=== PATIENT | female | born 1940 | race Caucasian/White ===

== ENCOUNTER 2017-08-23 10:59 | Observation (INO) | payer MEDICARE, BC ==
[2017-08-23 11:27] LABS: CHLORIDE,CL 99 mEq/L (98-106); SODIUM,NA 136 mEq/L (136-145)
[2017-08-23] MEDS ORDERED: Acetaminophen 325 MG Tab PO PRN (13:28)
[2017-08-23] MEDS ORDERED: Magnesium Hydroxide 400 MG/5 ML Susp 30 ML Cup PO PRN (13:28)
[2017-08-23] MEDS ORDERED: Ondansetron 4 MG/2 ML SDV IV PRN (13:28)
[2017-08-23] MEDS ORDERED: Temazepam 15 MG Cap PO PRN (13:28)
[2017-08-23] MEDS ORDERED: Calcium Carbonate 500 MG Tab.Chew PO PRN (13:33)
[2017-08-23] MEDS ORDERED: Ibuprofen 200 MG Tab PO PRN (13:34)
[2017-08-23] MEDS ORDERED: Enoxaparin 30 MG/0.3 ML Syringe SUBCUT SCH (14:00)
[2017-08-23] MEDS ORDERED: metroNIDAZOLE/Normal Saline 500 MG in Premix Bag 1 BAG IV SCH (14:00)
[2017-08-23] MEDS: Vancomycin 125 MG/2.5 ML Oral Solution 2.5 ML UD Cup PO SCH ×2 (15:34→19:52)
[2017-08-23] MEDS: Enoxaparin 40 MG/0.4 ML Syringe SUBCUT SCH (15:34)
[2017-08-23] MEDS ORDERED: Potassium Chloride 40 MEQ in Premix Bag 1 BAG IV SCH (17:00)
[2017-08-23] MEDS ORDERED: Dextrose 5%-0.45% NaCl 1,000 ML IV ONE (17:30)
[2017-08-23] MEDS ORDERED: Potassium Chloride 40 MEQ in Premix Bag 1 BAG IV ONE (17:30)
[2017-08-23] MEDS ORDERED: D5 1/2 NS w/ 20 mEq/L KCl 1,000 ML ONE (19:11)
[2017-08-23] MEDS ORDERED: Acetaminophen 500 MG Tab PO SCH (20:00)
[2017-08-23] MEDS ORDERED: diphenhydrAMINE 25 MG Cap PO SCH (20:00)
[2017-08-24] MEDS: metroNIDAZOLE/Normal Saline 500 MG in Premix Bag 1 BAG IV SCH ×2 (00:03→08:39)
[2017-08-24] MEDS ORDERED: D5 1/2 NS w/ 20 mEq/L KCl 1,000 ML IV SCH ×2 (05:45→07:30)
[2017-08-24] MEDS ORDERED: Vitamin B Complex Cap PO SCH (08:00)
[2017-08-24] MEDS ORDERED: COLESTIPOL 1 GM PO SCH (08:00)
[2017-08-24] MEDS ORDERED: Verapamil 80 MG Tab PO SCH (08:00)
[2017-08-24] MEDS: Vancomycin 125 MG/2.5 ML Oral Solution 2.5 ML UD Cup PO SCH (08:39)
[2017-08-24] MEDS ORDERED: Potassium Chloride 40 MEQ in Premix Bag 1 BAG IV SCH (08:45)
[2017-08-24] MEDS ORDERED: Dextrose 5%-0.45% NaCl 1,000 ML IV SCH (08:45)
[2017-08-24] MEDS: Potassium Chloride 10 MEQ Tab.ER PO SCH ×3 (08:47→17:29)
--- NOTE | 2017-08-24 12:14 | PN ---
DATE: 08/24/2017 S: Mariya Gomez came in with hypokalemia secondary to diarrhea which probably is from the chemotherapy that she is getting for metastatic colon cancer. O: GENERAL: Patient is alert and orientated. NECK: Supple. CHEST: Clear. CARDIAC: Regular. ABDOMEN: Soft. ASSESSMENT/PLAN: Stools have stopped. C. diff is negative. I will get stool cultures. She is still hypokalemic. Give her IV and oral potassium today. DESIRE/MIHIR /[id number]
[2017-08-24] MEDS: Enoxaparin 40 MG/0.4 ML Syringe SUBCUT SCH (16:05)
[2017-08-24 16:12] VITALS: BP 138/67
--- NOTE | 2017-08-25 07:59 | DISCH ---
HOSPITAL COURSE: This is an elderly white female came in with diarrhea. She had a history of C diff in the past. I went ahead and we did start her on some IV fluids and IV potassium because potassium was 2.6-2.7, it was 2.7 on admission, went to 2.6 this morning. We then started on IV and oral potassium. She demanded to go home. So, we are going to let her go home and follow with. Diarrhea is better than when she came in. CBC: Hemoglobin 11.4, probably from chemo for her colon cancer. Creatinine is good. Urinalysis looked good. DISPOSITION: The patient is now discharged home. She will have a panel 8 early Tuesday morning. DISCHARGE MEDICATIONS: Home medications plus Micro-K 10 20 mEq t.i.d. and Colestid 1 g b.i.d. for a month. DISCHARGE DIAGNOSIS: 1. HYPOKALEMIA. 2. METASTATIC COLON CANCER. 3. HISTORY OF CLOSTRIDIUM DIFFICILE. DESIRE/MIHIR /[id number]
== END 2017-08-24 18:55 | disposition home or self-care (01) ==
LOC: CC.FCMC 10:59 → CC.MS 10:59 → UNDOADMOB 12:09 → CC.MS 12:09
PROVIDERS: ADMIT General Practice; ATTEND General Practice
DX: E87.6 Hypokalemia (principal); R53.83 Other fatigue; C18.9 Malignant neoplasm of colon, unspecified; C79.9 Secondary malignant neoplasm of unspecified site; E78.5 Hyperlipidemia, unspecified; I10 Essential (primary) hypertension; Z79.899 Other long term (current) drug therapy
CPT/HCPCS: 36415; 80048; 80053; 81001; 83735; 85025; 86140; 87045; 87046; 87493; 87899; 89055; 96361; 96365; 96366; 96367; 96372; 96376; A9270; G0378; J1650; J3480; J7042; 99217; 99220

== ENCOUNTER 2018-12-13 13:19 | Observation (INO) | payer MEDICARE, BC ==
[2018-12-13] MEDS ORDERED: Ondansetron 4 MG/2 ML SDV IV PRN (14:05)
[2018-12-13] MEDS ORDERED: Acetaminophen 325 MG Tab PO PRN (14:05)
[2018-12-13] MEDS: Sodium Chloride 0.9% 1,000 ML IV SCH (14:44)
[2018-12-13] MEDS ORDERED: Potassium Chloride Riders 40 MEQ in Premix Bag 1 BAG IV ONE (14:45)
[2018-12-13] MEDS: Enoxaparin 30 MG/0.3 ML Syringe SUBCUT SCH (15:55)
[2018-12-13] MEDS ORDERED: diphenhydrAMINE 25 MG Cap PO PRN (18:27)
[2018-12-13] MEDS ORDERED: Magnesium Sulfate/D5W 2 GM in Premix Bag 1 BAG IV ONE (19:00)
[2018-12-13] MEDS: **PTOM** Gabapentin 300 MG Cap PO SCH (20:05)
[2018-12-13] MEDS: POTASSIUM CHLORIDE 20 MEQ PO SCH (20:05)
[2018-12-13] MEDS: ADVIL PM PO PRN (20:08)
[2018-12-14] MEDS: Sodium Chloride 0.9% 1,000 ML IV SCH ×3 (00:35→19:43)
[2018-12-14] MEDS: Pantoprazole 40 MG Tab.CR PO SCH (06:48)
[2018-12-14] MEDS ORDERED: Potassium Chloride Riders 40 MEQ in Premix Bag 1 BAG IV ONE (07:44)
[2018-12-14] MEDS ORDERED: Potassium Chloride 10 MEQ Tab.ER PO SCH (08:00)
[2018-12-14] MEDS ORDERED: **PTOM** Furosemide 20 MG Tab PO SCH (08:00)
[2018-12-14] MEDS ORDERED: Non-Formulary Medication 1 Each (Lysine [Lysine] 500 MG) PO SCH (08:00)
[2018-12-14] MEDS: POTASSIUM CHLORIDE 20 MEQ PO SCH ×2 (08:01→19:37)
[2018-12-14] MEDS: Vitamin B Complex Cap PO SCH (08:01)
--- NOTE | 2018-12-14 09:04 | PCM.PN ---
- General Info Date of Service: 12/14/18 Admission Dx/Problem (Free Text): Weakness Dehydration Metastatic colon cancer Functional Status: Reports: Pain Controlled, Tolerating Diet, Ambulating - Review of Systems General: Reports: Weakness HEENT: Reports: Other (sore mouth) Pulmonary: Denies: Shortness of Breath, Cough Cardiovascular: Denies: Chest Pain Gastrointestinal: Reports: Decreased Appetite. Denies: Abdominal Pain, Nausea, Vomiting Genitourinary: Reports: No Symptoms Musculoskeletal: Reports: No Symptoms Skin: Reports: No Symptoms Neurological: Reports: Weakness - Patient Data Vitals - Most Recent: Last Vital Signs Temp 96.9 F 12/14/18 07:35 Pulse 65 12/14/18 07:35 Resp 18 12/14/18 07:35 BP 106/63 12/14/18 07:35 Pulse Ox 95 12/14/18 07:35 Weight - Most Recent: 105 lb 3.2 oz I&O - Last 24 Hours: Intake & Output 12/13/18 12/14/18 12/14/18 22:59 06:59 14:59 Intake Total 250 1285 Output Total 350 0 400 Balance -100 1285 -400 Lab Results Last 24 Hours: Laboratory Results - last 24 hr 12/13/18 12/13/18 12/13/18 Range/Units 14:04 14:04 18:03 WBC 3.7 L (5.0-10.0) 10^3/uL RBC 2.90 L (4.00-5.50) 10^6/uL Hgb 9.3 L (12.0-16.0) g/dL Hct 27.7 L (37.0-47.0) % MCV 95.5 H (82.0-94.0) fL MCH 32.1 H (27.0-32.0) pg MCHC 33.6 (33.0-38.0) g/dL RDW Coeff of Angela 15.5 H (11.0-15.0) % Plt Count 194 (150-400) 10^3/uL Neut % (Auto) 65.4 (35-85) % Lymph % (Auto) 20.4 (10-55) % [place] % (Auto) 10.2 (0-16) % Eos % (Auto) 3.2 (0-5) % Baso % (Auto) 0.8 (0-3) % Neut # (Auto) 2.43 (1.80-7.00) 10^3/uL Lymph # (Auto) 0.76 L (1.00-4.80) 10^3/uL [place] # (Auto) 0.38 (0.00-0.80) 10^3/uL Eos # (Auto) 0.12 (0.00-0.45) 10^3/uL Baso # (Auto) 0.03 10^3/uL Sodium 136 (136-145) mEq/L Potassium 2.7 L* (3.5-5.0) mEq/L Chloride 101 (98-106) mEq/L Carbon Dioxide 26 (21-32) mmol/L BUN 19 H (7-18) mg/dL Creatinine 1.1 H (0.6-1.0) mg/dL Est Cr Clr Drug Dosing 30.73 mL/min Estimated GFR (MDRD) 48 L (>=60) mL/min Glucose 109 H (75-99) mg/dL Calcium 8.0 L (8.4-10.1) mg/dL Magnesium 1.5 L (1.8-2.4) mg/dL Total Bilirubin 0.4 (0.0-1.0) mg/dL AST 32 (15-37) U/L ALT 14 (12-78) U/L Alkaline Phosphatase 60 (46-116) U/L C-Reactive Protein 1.5 H (0.2-0.8) mg/dL Total Protein 5.8 L (6.4-8.2) g/dL Albumin 2.3 L (3.4-5.0) g/dL Urine Color Yellow (YELLOW) Urine Appearance Clear (CLEAR) Urine pH 6.0 (4.5-8.0) Ur Specific [place] 1.010 (1.003-1.020) Urine Protein Negative (NEGATIVE) mg/dL Urine Glucose (UA) Negative (NEGATIVE) mg/dL Urine Ketones Negative (NEGATIVE) mg/dL Urine Occult Blood Negative (NEGATIVE) Urine Nitrite Negative (NEGATIVE) Urine Bilirubin Negative (NEGATIVE) Urine Urobilinogen 0.2 (0.2-1.0) EU/dL Ur Leukocyte Esterase Negative (NEGATIVE) 12/14/18 12/14/18 Range/Units 06:50 06:50 WBC 3.9 L (5.0-10.0) 10^3/uL RBC 2.68 L (4.00-5.50) 10^6/uL Hgb 8.6 L (12.0-16.0) g/dL Hct 25.9 L (37.0-47.0) % MCV 96.3 H (82.0-94.0) fL MCH 32.1 H (27.0-32.0) pg MCHC 33.3 (33.0-38.0) g/dL RDW Coeff of Angela 15.5 H (11.0-15.0) % Plt Count 182 (150-400) 10^3/uL Neut % (Auto) 56.3 (35-85) % Lymph % (Auto) 29.2 (10-55) % [place] % (Auto) 9.6 (0-16) % Eos % (Auto) 4.0 (0-5) % Baso % (Auto) 0.9 (0-3) % Neut # (Auto) 1.81 (1.80-7.00) 10^3/uL Lymph # (Auto) (1.00-4.80) 10^3/uL [place] # (Auto) 0.31 (0.00-0.80) 10^3/uL Eos # (Auto) 0.13 (0.00-0.45) 10^3/uL Baso # (Auto) 0.03 10^3/uL Sodium 137 (136-145) mEq/L Potassium 3.2 L (3.5-5.0) mEq/L Chloride 104 (98-106) mEq/L Carbon Dioxide 25 (21-32) mmol/L BUN 14 (7-18) mg/dL Creatinine 1.0 (0.6-1.0) mg/dL Est Cr Clr Drug Dosing 33.80 mL/min Estimated GFR (MDRD) 53 L (>=60) mL/min Glucose 81 D (75-99) mg/dL Calcium 7.5 L (8.4-10.1) mg/dL Magnesium 2.1 (1.8-2.4) mg/dL Total Bilirubin (0.0-1.0) mg/dL AST (15-37) U/L ALT (12-78) U/L Alkaline Phosphatase (46-116) U/L C-Reactive Protein (0.2-0.8) mg/dL Total Protein (6.4-8.2) g/dL Albumin (3.4-5.0) g/dL Urine Color (YELLOW) Urine Appearance (CLEAR) Urine pH (4.5-8.0) Ur Specific [place] (1.003-1.020) Urine Protein (NEGATIVE) mg/dL Urine Glucose (UA) (NEGATIVE) mg/dL Urine Ketones (NEGATIVE) mg/dL Urine Occult Blood (NEGATIVE) Urine Nitrite (NEGATIVE) Urine Bilirubin (NEGATIVE) Urine Urobilinogen (0.2-1.0) EU/dL Ur Leukocyte Esterase (NEGATIVE) [place]ner Results Last 24 Hours: Microbiology 12/14/18 07:09 C. difficile DNA Amplification - Final Stool / Feces NEGATIVE CDIFF BY DNA Med Orders - Current: Current Medications Acetaminophen (Tylenol) 650 mg PO Q4H PRN PRN Reason: Pain (Mild 1-3)/fever Enoxaparin Sodium (Lovenox) 30 mg SUBCUT Q24H [facility] Last Admin: 12/13/18 15:55 Dose: 30 mg Gabapentin (Neurontin) 100 mg PO WITHLUNCH [facility] Gabapentin (Neurontin) 300 mg PO BEDTIME [facility] Last Admin: 12/13/18 20:05 Dose: 300 mg Sodium Chloride (Normal Saline) 1,000 mls @ 100 mls/hr IV ASDIRECTED [facility] Last Admin: 12/14/18 00:35 Dose: 100 mls/hr Potassium Chloride 40 meq/ (Premix) 100 mls @ 25 mls/hr IV ONETIME ONE Stop: 12/14/18 11:43 Last Admin: 12/14/18 08:40 Dose: 25 mls/hr Ptom Potassium (Chloride 20 Meq Tab) 20 meq PO BID [facility] Last Admin: 12/14/18 08:01 Dose: 20 meq Ptom Advil Pm ( Ibuprofen/Diphenhydramine) 1 each PO BEDTIME PRN PRN Reason: Sleep Last Admin: 12/13/18 20:08 Dose: 1 each Ondansetron HCl (Zofran) 4 mg IV Q6H PRN PRN Reason: Nausea/Vomiting Pantoprazole Sodium (Protonix) 40 mg PO DAILY@0700 [facility] Last Admin: 12/14/18 06:48 Dose: 40 mg Vitamin B Complex (Vitamin B Complex) 1 each PO DAILY [facility] Last Admin: 12/14/18 08:01 Dose: Not Given Discontinued Medications Diphenhydramine HCl (Benadryl) 25 mg PO Q12H PRN PRN Reason: Sleep Furosemide (Lasix) 20 mg PO DAILY [facility] Potassium Chloride 40 meq/ (Premix) 100 mls @ 25 mls/hr IV ONETIME ONE Stop: 12/13/18 18:44 Last Admin: 12/13/18 14:46 Dose: 25 mls/hr Magnesium Sulfate/Dextrose 2 (gm/ Premix) 200 mls @ 200 mls/hr IV ONETIME ONE Stop: 12/13/18 19:59 Last Admin: 12/13/18 18:51 Dose: 200 mls/hr Non-Formulary Medication (Acetaminophen/Diphenhydramine [Tylenol Pm Ex-Strength Caplet]) 1 - 2 tab PO BEDTIME PRN PRN Reason: Insomnia Non-Formulary Medication (Lysine [Lysine]) 500 mg PO DAILY [facility] Potassium Chloride (Klor-Con 10) 20 meq PO DAILY [facility] - Exam General: Alert, Oriented HEENT: Mucous Membr. Moist/[place] Neck: Supple Lungs: Clear to Auscultation, Normal Respiratory Effort Cardiovascular: Regular Rate, Regular Rhythm GI/Abdominal Exam: Normal Bowel Sounds, Soft, Non-Tender Extremities: Normal Inspection, No Pedal Edema Skin: Warm, Dry Neurological: No New Focal Deficit - Problem List & Annotations (1) Weakness SNOMED Code(s): 25774254 Code(s): R53.1 - WEAKNESS Status: Acute Priority: High Current Visit: Yes (2) Colon cancer SNOMED Code(s): 128394985 Code(s): C18.9 - MALIGNANT NEOPLASM OF COLON, UNSPECIFIED Status: Acute Priority: High Current Visit: Yes (3) Hypokalemia SNOMED Code(s): 19736779 Code(s): E87.6 - HYPOKALEMIA Status: Acute Priority: High Current Visit : Yes (4) Palliative care patient SNOMED Code(s): 077007603 Code(s): Z51.5 - ENCOUNTER FOR PALLIATIVE CARE Status: Acute Priority: High Current Visit: Yes - Problem List Review Problem List Initiated/Reviewed/Updated: Yes - Assessment Assessment:: Weakness Hypokalemia Metastatic Colon Cancer Palliative Care patient - Plan Plan:: Patient admits to feeling better this am. Has ongoing weakness, but improved. She denies much pain this am. Minimal appetite but states that is chronic for her. Has mouth soreness making it difficult for her to eat. Was admitted yesterday with low potassium at 2.9, magnesium at 1.5. Was given IV potassium 40 meq yesterday, today potassium is 3.2. Given magnesium sulfate IV as well yesterday, today improved to 2.1. Creatinine stable. Will repeat labs in am, possibly discharge home tomorrow.
[2018-12-14] MEDS ORDERED: **PTOM** Gabapentin 100 MG Cap PO SCH (12:00)
[2018-12-14] MEDS: Enoxaparin 30 MG/0.3 ML Syringe SUBCUT SCH (17:02)
[2018-12-14] MEDS: **PTOM** Gabapentin 300 MG Cap PO SCH (19:37)
[2018-12-14] MEDS: ADVIL PM PO PRN (21:18)
[2018-12-15] MEDS: Pantoprazole 40 MG Tab.CR PO SCH (06:13)
[2018-12-15] MEDS: Sodium Chloride 0.9% 1,000 ML IV SCH (06:13)
[2018-12-15] MEDS ORDERED: LYSINE 1000 MG PO SCH (08:00)
[2018-12-15] MEDS: POTASSIUM CHLORIDE 20 MEQ PO SCH (08:14)
[2018-12-15] MEDS: Vitamin B Complex Cap PO SCH (08:14)
[2018-12-15 08:18] VITALS: BP 115/63
[2018-12-15 08:47] LABS: CHLORIDE,CL 109 mEq/L (98-106); SODIUM,NA 139 mEq/L (136-145)
--- NOTE | 2018-12-15 20:36 | PCM.DCSUM1 ---
Discharge Summary - Hospital Course Free Text/Narrative:: Patient presented to clinic to see Ashley for increased weakness. Not eating well per norm but also not able to consume fluids and worried about dehydration. Has felt lightheaded and dizzy. Did fall x1. Hit her head but no loss of consciousness. Mild diarrhea night prior to admit. Has issues with mouth sores making it difficult to eat. Patient has history of metastatic colon cancer with nodules in lungs and ovary. Has been on chemo regimen every 2 weeks for some time, possibly hoping to switch to oral chemo when sees her oncologist on December 19. Lab work done show potassium low at 2.7. WBC 3.9. Admitted for weakness, hypokalemia. IV fluids with potassium 40 meq bump ordered. Diagnosis: Stroke: No Modified Lassen Scale: No Symptoms at All Modified Lassen Scale Score: 0 - Discharge Data Discharge Date: 12/15/18 Discharge Disposition: Home, Home Health Agency 06 Condition: Fair - Discharge Diagnosis/Problem(s) (1) Weakness SNOMED Code(s): 89936322 ICD Code: R53.1 - WEAKNESS Status: Acute Priority: High (2) Colon cancer SNOMED Code(s): 925466844 ICD Code: C18.9 - MALIGNANT NEOPLASM OF COLON, UNSPECIFIED Status: Acute Priority: High (3) Hypokalemia SNOMED Code(s): 70280982 ICD Code: E87.6 - HYPOKALEMIA Status: Acute Priority: High (4) Palliative care patient SNOMED Code(s): 408681883 ICD Code: Z51.5 - ENCOUNTER FOR PALLIATIVE CARE Status: Acute Priority: High - Patient Summary/Data Complications: none Consults: Consultations 12/13/18 14:05 PT Evaluation and Treatment [CONS] Routine Hospital Course: Patient feeling better today. Is still weak but relates more to her norm. Unsteady at times with ambulation. She reports that her balance and gait has been unsteady for some time. Only ambulates with at home as is hesitant to use a walker. Eating only small amounts. Abdomen is mildly distended, nontender yet at this time. Potassium improved to 3.3 yesterday, 3.8 today. Will discharge home. Increase potassium to 20 meq BID. [facility] for palliative care. Follow up with Dr. Ahumada in one week. - Patient Instructions Diet: Usual Diet as Tolerated Activity: As Tolerated - Discharge Plan *PRESCRIPTION DRUG MONITORING PROGRAM REVIEWED*: No *COPY OF PRESCRIPTION DRUG MONITORING REPORT IN PATIENT MARY: No Prescriptions/Med Rec: Potassium Chloride 20 meq PO BID 30 Days #60 Home Medications: Home Meds Calcium Carbonate/Vitamin D3 [Calcium 500-Vit D3 200 Tablet] 2 tab PO DAILY [History] Ibuprofen [Advil] 200 mg PO DAILY PRN 07/14/15 [History] Verapamil [Calan] 80 mg PO DAILY 07/14/15 [History] Vitamin B Complex [B Complex] 1 each PO DAILY 07/14/15 [History] Cholecalciferol (Vitamin D3) [Vitamin D3] 5,000 unit PO DAILY 04/10/16 [History] Acetaminophen/Diphenhydramine [Tylenol Pm Ex-Strength Caplet] 1 - 2 tab PO BEDTIME PRN 05/08/16 [History] Gabapentin [Neurontin] 300 mg PO BEDTIME 05/04/18 [History] guaiFENesin [Mucinex] 600 mg PO BID PRN 08/30/18 [History] Furosemide 20 mg PO DAILY 10/19/18 [History] Diphenoxylate HCl/Atropine [Diphenoxylate-Atrop 2.5-0.025] 2 tab PO QID PRN [History] Gabapentin [Neurontin] 100 mg PO 1200 12/13/18 [History] Lysine 500 mg PO DAILY 12/13/18 [History] Ondansetron HCl [Zofran] 4 mg PO Q6H PRN 12/13/18 [History] Potassium Chloride 20 meq PO BID 30 Days #60 12/15/18 [Rx] Patient Handouts: Hypokalemia, Potassium Content of Foods Referrals: Ketan Ahumada MD [Primary Care Provider] - (Follow up with Dr. Ahumada in one week) - Discharge Summary/Plan Comment DC Time >30 min.: No - General Info Date of Service: 12/15/18 Admission Dx/Problem (Free Text: Weakness Dehydration Metastatic colon cancer Functional Status: Reports: Pain Controlled, Tolerating Diet, Ambulating - Review of Systems General: Reports: Weakness, Fatigue, Malaise HEENT: Reports: No Symptoms Pulmonary: Denies: Shortness of Breath, Cough Cardiovascular: Denies: Chest Pain, Edema, Lightheadedness Gastrointestinal: Reports: Abdominal Pain. Denies: Nausea, Vomiting Genitourinary: Reports: No Symptoms Musculoskeletal: Reports: No Symptoms Skin: Reports: No Symptoms Neurological: Reports: Weakness - Patient Data Vitals - Most Recent: Last Vital Signs Temp 97.4 F 12/15/18 08:00 Pulse 64 12/15/18 08:00 Resp 16 12/15/18 08:00 BP 115/63 12/15/18 08:00 Pulse Ox 100 12/15/18 08:00 Weight - Most Recent: 105 lb 3.2 oz I&O - Last 24 hours: Intake & Output 12/15/18 12/15/18 12/15/18 06:59 14:59 22:59 Intake Total 1200 Output Total 200 Balance 1000 Lab Results - Last 24 hrs: Laboratory Results - last 24 hr 12/15/18 12/15/18 Range/Units 07:53 08:10 WBC 5.2 (5.0-10.0) 10^3/uL RBC 2.66 L (4.00-5.50) 10^6/uL Hgb 8.5 L (12.0-16.0) g/dL Hct 25.7 L (37.0-47.0) % MCV 96.6 H (82.0-94.0) fL MCH 32.0 (27.0-32.0) pg MCHC 33.1 (33.0-38.0) g/dL RDW Coeff of Angela 15.9 H (11.0-15.0) % Plt Count 186 (150-400) 10^3/uL Neut % (Auto) 63.3 (35-85) % Lymph % (Auto) 22.3 (10-55) % [place] % (Auto) 11.3 (0-16) % Eos % (Auto) 2.5 (0-5) % Baso % (Auto) 0.6 (0-3) % Neut # (Auto) 3.26 (1.80-7.00) 10^3/uL Lymph # (Auto) 1.15 (1.00-4.80) 10^3/uL [place] # (Auto) 0.58 (0.00-0.80) 10^3/uL Eos # (Auto) 0.13 (0.00-0.45) 10^3/uL Baso # (Auto) 0.03 10^3/uL Sodium 139 (136-145) mEq/L Potassium 3.8 (3.5-5.0) mEq/L Chloride 109 H (98-106) mEq/L Carbon Dioxide 25 (21-32) mmol/L BUN 12 (7-18) mg/dL Creatinine 1.0 (0.6-1.0) mg/dL Est Cr Clr Drug Dosing 33.80 mL/min Estimated GFR (MDRD) 53 L (>=60) mL/min Glucose 79 (75-99) mg/dL Calcium 7.6 L (8.4-10.1) mg/dL Magnesium 1.9 (1.8-2.4) mg/dL C-Reactive Protein < 0.2 L (0.2-0.8) mg/dL KATELYN Results - Last 24 hrs: Microbiology 12/14/18 07:09 Stool Aerobic Culture - Preliminary Stool / Feces Med Orders - Current: Current Medications Discontinued Medications Acetaminophen (Tylenol) 650 mg PO Q4H PRN PRN Reason: Pain (Mild 1-3)/fever Last Admin: 12/14/18 19:42 Dose: 650 mg Diphenhydramine HCl (Benadryl) 25 mg PO Q12H PRN PRN Reason: Sleep Enoxaparin Sodium (Lovenox) 30 mg SUBCUT Q24H [facility] Last Admin: 12/14/18 17:02 Dose: 30 mg Furosemide (Lasix) 20 mg PO DAILY [facility] Gabapentin (Neurontin) 100 mg PO WITHLUNCH [facility] Last Admin: 12/14/18 11:52 Dose: 100 mg Gabapentin (Neurontin) 300 mg PO BEDTIME [facility] Last Admin: 12/14/18 19:37 Dose: 300 mg Heparin Sodium (Porcine) (Heparin Lock Flush 100 Units/Ml) Confirm Administered Dose 500 units .ROUTE .STK-MED ONE Stop: 12/15/18 10:14 Last Admin: 12/15/18 10:51 Dose: Not Given Heparin Sodium (Porcine) (Heparin Lock Flush 100 Units/Ml) 300 units FLUSH ASDIRECTED PRN PRN Reason: Other Last Admin: 12/15/18 10:48 Dose: 300 units Sodium Chloride (Normal Saline) 1,000 mls @ 100 mls/hr IV ASDIRECTED [facility] Last Admin: 12/15/18 06:13 Dose: 100 mls/hr Potassium Chloride 40 meq/ (Premix) 100 mls @ 25 mls/hr IV ONETIME ONE Stop: 12/13/18 18:44 Last Admin: 12/13/18 14:46 Dose: 25 mls/hr Magnesium Sulfate/Dextrose 2 (gm/ Premix) 200 mls @ 200 mls/hr IV ONETIME ONE Stop: 12/13/18 19:59 Last Admin: 12/13/18 18:51 Dose: 200 mls/hr Potassium Chloride 40 meq/ (Premix) 100 mls @ 25 mls/hr IV ONETIME ONE Stop: 12/14/18 11:43 Last Admin: 12/14/18 08:40 Dose: 25 mls/hr Non-Formulary Medication (Acetaminophen/Diphenhydramine [Tylenol Pm Ex-Strength Caplet]) 1 - 2 tab PO BEDTIME PRN PRN Reason: Insomnia Non-Formulary Medication (Lysine [Lysine]) 500 mg PO DAILY [facility] Ptom Potassium (Chloride 20 Meq Tab) 20 meq PO BID [facility] Last Admin: 12/15/18 08:14 Dose: 20 meq Ptom Advil Pm ( Ibuprofen/Diphenhydramine) 1 each PO BEDTIME PRN PRN Reason: Sleep Last Admin: 12/14/18 21:18 Dose: 1 each Ptom Lysine 1, (000 Mg Tab) 1,000 mg PO DAILY [facility] Last Admin: 12/15/18 08:14 Dose: 1,000 mg Ondansetron HCl (Zofran) 4 mg IV Q6H PRN PRN Reason: Nausea/Vomiting Pantoprazole Sodium (Protonix) 40 mg PO DAILY@0700 [facility] Last Admin: 12/15/18 06:13 Dose: 40 mg Potassium Chloride (Klor-Con 10) 20 meq PO DAILY [facility] Vitamin B Complex (Vitamin B Complex) 1 each PO DAILY [facility] Last Admin: 12/15/18 08:14 Dose: 1 each - Exam General: Reports: Alert, Oriented HEENT: Reports: Mucous Membr. Moist/[place] Neck: Reports: Supple Lungs: Reports: Clear to Auscultation, Normal Respiratory Effort Cardiovascular: Reports: Regular Rate, Regular Rhythm GI/Abdominal Exam: Normal Bowel Sounds, Soft, Non-Tender Extremities: Normal Inspection, No Pedal Edema Skin: Reports: Warm, Dry Neurological: Reports: No New Focal Deficit
== END 2018-12-15 10:48 | disposition home health service (06) ==
LOC: UNDOADMOB 13:19 → CC.MS 13:19
PROVIDERS: ADMIT Nurse Practitioner Family; ATTEND Family Medicine
DX: E87.6 Hypokalemia (principal); E86.0 Dehydration; E83.42 Hypomagnesemia; I95.9 Hypotension, unspecified; C18.9 Malignant neoplasm of colon, unspecified; C78.00 Secondary malignant neoplasm of unspecified lung; C79.62 Secondary malignant neoplasm of left ovary; C78.6 Secondary malignant neoplasm of retroperitoneum and peritoneum; K52.1 Toxic gastroenteritis and colitis; T45.1X5A Adverse effect of antineoplastic and immunosuppressive drugs, initial encounter; Z51.5 Encounter for palliative care; Z79.899 Other long term (current) drug therapy
CPT/HCPCS: 36415; 70450; 80048; 80053; 81003; 83735; 85025; 86140; 87045; 87046; 87493; 96361; 96365; 96366; 96367; 96372; 97161-GP; 99217; 99220; 99225; A9270-GY; G0378; G0379; J1642; J1650; J3475; J3480; J7030

== ENCOUNTER 2019-01-03 09:13 | Observation (INO) | payer MEDICARE, BC ==
[2019-01-03] MEDS ORDERED: Lactated Ringers 1,000 ML IV SCH (09:15)
[2019-01-03 09:51] LABS: O2 DELIVERY DEVICE NASAL CANNULA
[2019-01-03 09:53] LABS: BICARBONATE,ARTERIAL 14.9 mm/L (22.0-26.0); O2 SATURATION ARTERIAL 99 % (95-98); PCO2 ARTERIAL 20 mm/Hg0 (35-45); PO2 ARTERIAL 104 mm/Hg (80-100)
[2019-01-03] MEDS ORDERED: Ondansetron 4 MG/2 ML SDV IVPUSH ONE (09:58)
[2019-01-03] MEDS ORDERED: Acetaminophen 325 MG Tab PO PRN (11:24)
[2019-01-03] MEDS ORDERED: Ondansetron 4 MG/2 ML SDV IV PRN (11:24)
[2019-01-03] MEDS ORDERED: Temazepam 15 MG Cap PO PRN (11:24)
[2019-01-03] MEDS ORDERED: Ondansetron 4 MG Tab.DIS PO PRN (11:24)
[2019-01-03] MEDS ORDERED: Enoxaparin 30 MG/0.3 ML Syringe SUBCUT SCH (11:30)
[2019-01-03 11:42] VITALS: BP 65/54
--- NOTE | 2019-01-03 11:55 | EDM.PDOC ---
ED HPI GENERAL MEDICAL PROBLEM - General Chief Complaint: Gastrointestinal Problem Stated Complaint: VOMITTING WEAKNESS Time Seen by Provider: 01/03/19 09:23 Source of Information: Reports: Patient, EMS, Family History Limitations: Reports: No Limitations - History of Present Illness INITIAL COMMENTS - FREE TEXT/NARRATIVE: Patient presents to ER with complaints of weakness, nausea, vomiting and diarrhea. States awoke at 6 am today with increased weakness and had episode of diarrhea. Did return back to bed but again had to get up but was unable to make it to the bathroom as was so weak. relates he had to lower her to the floor as her legs were so weak. Has had 2 loose stools, vomited at home prior to calling EMS. Daughter states she did appear to have trouble breathing at home as well. Patient states has mild abdominal discomfort. Nauseated. No real pain. Family notes she has been very active over the last 2 days. Has been out doing more activities and wonders if "she overdid it". patient has history of metastatic colon cancer. Has intermittent paracentesis done. Currently off her chemo regimen and was "hoping to start an oral chemo" next week at her oncology visit. Onset: Gradual Duration: Hour(s):, Getting Worse Location: Reports: Generalized Improves with: Reports: None Associated Symptoms: Reports: Fever/Chills, Loss of Appetite, Nausea/Vomiting, Shortness of Breath, Weakness. Denies: Confusion, Cough Abdominal Pain Score (Numeric/FACES): 4 - Related Data Allergies Allergy/AdvReac Type Severity Reaction Status Date / Time No Known Allergies Allergy Verified 01/03/19 09:39 Home Meds: Home Meds Ibuprofen [Advil] 200 mg PO DAILY PRN 07/14/15 [History] Acetaminophen/Diphenhydramine [Tylenol Pm Ex-Strength Caplet] 1 - 2 tab PO BEDTIME PRN 05/08/16 [History] Gabapentin [Neurontin] 300 mg PO BEDTIME 05/04/18 [History] guaiFENesin [Mucinex] 600 mg PO BID PRN 08/30/18 [History] Furosemide 20 mg PO DAILY 10/19/18 [History] Diphenoxylate HCl/Atropine [Diphenoxylate-Atrop 2.5-0.025] 2 tab PO QID PRN [History] Gabapentin [Neurontin] 100 mg PO 1200 12/13/18 [History] Lysine 500 mg PO DAILY PRN 12/13/18 [History] Ondansetron HCl [Zofran] 4 mg PO Q6H PRN 12/13/18 [History] Potassium Chloride 20 meq PO BID 30 Days #60 12/15/18 [Rx] Past Medical History HEENT History: Reports: Allergic Rhinitis Cardiovascular History: Reports: High Cholesterol, Hypertension, Other (See Below) Other Cardiovascular History: palpitations Gastrointestinal History: Reports: GERD, Other (See Below) Other Gastrointestinal History: chemotherapy induced diarrhea OVERNIGHT ASSOCIATE History: Reports: Musculoskeletal History: Reports: Arthritis, Other (See Below) Other Musculoskeletal History: disorder of bone density and structure Neurological History: Reports: Neuropathy, Peripheral Endocrine/Metabolic History: Reports: Vitamin D Deficiency Hematologic History: Reports: Anemia, Iron Deficiency Oncologic (Cancer) History: Reports: Colon, Metastatic - Infectious Disease History Infectious Disease History: Reports: C-Difficile - Past Surgical History Cardiovascular Surgical History: Reports: None Musculoskeletal Surgical History: Reports: Other (See Below) Other Musculoskeletal Surgeries/Procedures:: R) ankle pins and plate Oncologic Surgical History: Reports: Other (See Below) Other Oncologic Surgeries/Procedures: partial colon resection Social & Family History - Family History Family Medical History: Noncontributory - Tobacco Use Smoking Status *Q: Never Smoker Second Hand Smoke Exposure: No - Caffeine Use Caffeine Use: Reports: None - Recreational Drug Use Recreational Drug Use: No ED ROS GENERAL - Review of Systems Review Of Systems: See Below Constitutional: Reports: Chills, Malaise, Weakness, Fatigue, Decreased Appetite HEENT: Reports: Other (dry mouth) Respiratory: Reports: Shortness of Breath. Denies: Cough Cardiovascular: Denies: No Symptoms Endocrine: Reports: Fatigue GI/Abdominal: Reports: Abdominal Pain, Diarrhea, Nausea, Vomiting : Reports: No Symptoms Neurological: Reports: Weakness ED EXAM, GI/ABD - Physical Exam Exam: See Below Exam Limited By: No Limitations General Appearance: Lethargic, Thin, Cachetic Ears: Normal External Exam, Normal TMs, Other (ear lobes cool, purpuric in nature) Nose: Normal Inspection, Normal Mucosa, No Blood Throat/Mouth: Normal Inspection, Other (mucous membranes dry) Head: Normocephalic Neck: Normal Inspection, Supple Respiratory/Chest: No Respiratory Distress, Other (shallow breathing, petechiae noted to chest, cheeks, ears ) Cardiovascular: Regular Rate, Rhythm GI/Abdominal Exam: Distended, Tender Extremities: Slow Capillary Refill, Other (extremities cool to the touch, toes purple, mottled appearance to legs. Unable to obtain oxygen sat. ) Neurological: Oriented Skin Exam: Cool, Mottled Course - Vital Signs Last Recorded V/S: Last Vital Signs Temp 99.7 F 01/03/19 10:50 Pulse 125 H 01/03/19 10:50 Resp 14 01/03/19 10:55 BP 65/54 L 01/03/19 11:42 Pulse Ox - Orders/Labs/Meds Orders: Active Orders 24 hr Category Date Time Status UA W/MICROSCOPIC [URIN] Stat Lab 01/03/19 09:13 Ordered Lactated Ringers [Ringers, Lactated] 1,000 ml Med 01/03/19 09:15 Active IV ASDIRECTED Medication Orders Acetaminophen (Tylenol) 650 mg PO Q4H PRN PRN Reason: Pain (Mild 1-3)/fever Enoxaparin Sodium (Lovenox) 30 mg SUBCUT Q24H JERICA Lactated Ringer's (Ringers, Lactated) 1,000 mls @ 150 mls/hr IV ASDIRECTED JERICA Last Admin: 01/03/19 09:32 Dose: 150 mls/hr Ondansetron HCl (Zofran Odt) 4 mg PO Q4H PRN PRN Reason: nausea, able to take PO Ondansetron HCl (Zofran) 4 mg IV Q4H PRN PRN Reason: Nausea/Vomiting Temazepam (Restoril) 15 mg PO BEDTIME PRN PRN Reason: Sleep Labs: Laboratory Tests 01/03/19 01/03/19 01/03/19 Range/Units 09:13 09:48 09:50 WBC 5.0 (5.0-10.0) 10^3/uL RBC 4.00 (4.00-5.50) 10^6/uL Hgb 12.8 (12.0-16.0) g/dL Hct 39.3 (37.0-47.0) % MCV 98.3 H (82.0-94.0) fL MCH 32.0 (27.0-32.0) pg MCHC 32.6 L (33.0-38.0) g/dL RDW Coeff of Angela 17.8 H (11.0-15.0) % Plt Count 290 (150-400) 10^3/uL Neut % (Auto) 71.8 (35-85) % Lymph % (Auto) 24.6 (10-55) % [place] % (Auto) 3.2 (0-16) % Eos % (Auto) 0 (0-5) % Baso % (Auto) 0.4 (0-3) % Neut # (Auto) 3.55 (1.80-7.00) 10^3/uL Lymph # (Auto) 1.22 (1.00-4.80) 10^3/uL [place] # (Auto) 0.16 (0.00-0.80) 10^3/uL Eos # (Auto) 0.00 (0.00-0.45) 10^3/uL Baso # (Auto) 0.02 10^3/uL ABG pH 7.47 H (7.35-7.45) ABG pCO2 20 L (35-45) mm/Hg0 ABG pO2 104 H (80-100) mm/Hg ABG HCO3 14.9 L (22.0-26.0) mm/L ABG O2 Saturation 99 H (95-98) % ABG Base Excess 9.0 H (-2.0-3.0) O2 Delivery Device Nasal cannula Oxygen Flow Rate 2.0 Sodium 138 (136-145) mEq/L Potassium 3.5 D (3.5-5.0) mEq/L Chloride 101 (98-106) mEq/L Carbon Dioxide 21 (21-32) mmol/L BUN 26 H (7-18) mg/dL Creatinine 1.5 H (0.6-1.0) mg/dL Est Cr Clr Drug Dosing 24.74 mL/min Estimated GFR (MDRD) 33 L (>=60) mL/min Glucose 79 (75-99) mg/dL Calcium 8.7 (8.4-10.1) mg/dL Total Bilirubin 0.5 (0.0-1.0) mg/dL AST 36 (15-37) U/L ALT 21 (12-78) U/L Alkaline Phosphatase 115 (46-116) U/L C-Reactive Protein 1.9 H (0.2-0.8) mg/dL Total Protein 6.1 L (6.4-8.2) g/dL Albumin 2.0 L (3.4-5.0) g/dL Meds: Medications Generic Name Dose Route Start Last Admin Trade Name Freq PRN Reason Stop Dose Admin Acetaminophen 650 mg 01/03/19 11:24 Tylenol PO Q4H PRN Pain (Mild 1-3)/fever Enoxaparin Sodium 30 mg 01/03/19 11:30 Lovenox SUBCUT Q24H JERICA Lactated Ringer's 1,000 mls @ 150 mls/hr 01/03/19 09:15 01/03/19 09:32 Ringers, Lactated IV 150 mls/hr ASDIRECTED JERICA Administration Ondansetron HCl 4 mg 01/03/19 11:24 Zofran Odt PO Q4H PRN nausea, able to take PO Ondansetron HCl 4 mg 01/03/19 11:24 Zofran IV Q4H PRN Nausea/Vomiting Temazepam 15 mg 01/03/19 11:24 Restoril PO BEDTIME PRN Sleep Discontinued Medications Generic Name Dose Route Start Last Admin Trade Name Freq PRN Reason Stop Dose Admin Ondansetron HCl 4 mg 01/03/19 09:58 01/03/19 10:01 Zofran IVPUSH 01/03/19 09:59 4 mg ONETIME ONE Administration - Re-Assessments/Exams Free Text/Narrative Re-Assessment/Exam: 01/03/19 Labs are essentially negative, stable. Will admit for observation, IV fluids Departure - Departure Time of Disposition: 10:20 Disposition: Refer to Observation Condition: Poor Clinical Impression: Palliative care patient, Weakness, Colon cancer, Diarrhea - Discharge Information *PRESCRIPTION DRUG MONITORING PROGRAM REVIEWED*: No *COPY OF PRESCRIPTION DRUG MONITORING REPORT IN PATIENT MARY: No - Problem List & Annotations (1) Diarrhea SNOMED Code(s): 58179635 Code(s): R19.7 - DIARRHEA, UNSPECIFIED Status: Acute Priority: High Current Visit: Yes Qualifiers: Diarrhea type: unspecified type Qualified Code(s): R19.7 - Diarrhea, unspecified (2) Weakness SNOMED Code(s): 38218967 Code(s): R53.1 - WEAKNESS Status: Acute Priority: High Current Visit: Yes (3) Colon cancer SNOMED Code(s): 187253805 Code(s): C18.9 - MALIGNANT NEOPLASM OF COLON, UNSPECIFIED Status: Acute Priority: High Current Visit: Yes (4) Palliative care patient SNOMED Code(s): 168413869 Code(s): Z51.5 - ENCOUNTER FOR PALLIATIVE CARE Status: Acute Priority: High Current Visit: Yes - Problem List Review Problem List Initiated/Reviewed/Updated: Yes - My Orders Last 24 Hours: My Active Orders 01/03/19 09:13 UA W/MICROSCOPIC [URIN] Stat 01/03/19 09:15 Lactated Ringers [Ringers, Lactated] 1,000 ml IV ASDIRECTED - Assessment/Plan Admission H&P: Please use this note as an admission H&P Last 24 Hours: My Active Orders 01/03/19 09:13 UA W/MICROSCOPIC [URIN] Stat 01/03/19 09:15 Lactated Ringers [Ringers, Lactated] 1,000 ml IV ASDIRECTED Assessment:: Weakness Diarrhea Palliative Care Metastatic Colon Cancer Plan: Patient will be admitted to observation for IV fluids. Dr. Ahumada aware and agrees with admission.
--- NOTE | 2019-01-03 12:07 | PCM.SN ---
- Free Text/Narrative Note: Nursing staff called with blood pressure now 50s/20s, less responsive. Fluid bolus ordered. Discussed status with family, question desire for transfer and more aggressive treatment, such as pressors for her blood pressure. Patient continues to have shallow breathing, pursed lip at times. Less responsive but will open eyes and answer questions to command. Patient herself declines transfer, family in agreement. Will keep comfortable here, family all here with patient.
[2019-01-03] MEDS ORDERED: Morphine 2 MG/ML Syringe IVPUSH PRN (12:49)
[2019-01-03] MEDS ORDERED: Morphine 4 MG/ML Syringe ONE ×2 (14:33→15:04)
[2019-01-03] MEDS: Morphine 2 MG/ML Syringe IVPUSH PRN ×3 (14:40→16:34)
--- NOTE | 2019-01-03 17:15 | PCM.DCSUM1 ---
Discharge Summary - Hospital Course Free Text/Narrative:: Patient presented to ER this am with increased weakness, nausea and diarrhea. She was unable to ambulate to the bathroom and had to lower her to the floor. She has a history of metastatic colon cancer. Somewhat lethargic at time of evaluation but answered all questions appropriately. Labs done, essentially stable. Blood pressure 80s/60s. IV fluids started. Admitted observation for weakness. Diagnosis: Stroke: No Modified [place] Scale: No Symptoms at All Modified Wallace Scale Score: 0 - Discharge Data Discharge Date: 01/03/19 Discharge Disposition: 20 Condition: - Discharge Diagnosis/Problem(s) (1) Diarrhea SNOMED Code(s): 06702782 ICD Code: R19.7 - DIARRHEA, UNSPECIFIED Status: Acute Priority: High Qualifiers: Diarrhea type: unspecified type Qualified Code(s): R19.7 - Diarrhea, unspecified (2) Weakness SNOMED Code(s): 78304405 ICD Code: R53.1 - WEAKNESS Status: Acute Priority: High (3) Colon cancer SNOMED Code(s): 607251310 ICD Code: C18.9 - MALIGNANT NEOPLASM OF COLON, UNSPECIFIED Status: Acute Priority: High (4) Palliative care patient SNOMED Code(s): 223724067 ICD Code: Z51.5 - ENCOUNTER FOR PALLIATIVE CARE Status: Acute Priority: High - Patient Summary/Data Consults: Consultations 01/03/19 11:24 Consult to Case Management/Senior Media Director [CONS] Routine Hospital Course: Patient continued to decline upon admit. blood pressure dropped to 50s/20s. Was given IV fluid bolus without much response. Became unresponsive over the course of the morning, respirations remain shallow through the afternoon. Color mottled. Family opted for comfort measures only this am, given morphine through the day. Family at bedside 1703- no audible heart tones, no respirations. Time of 1703. - Discharge Plan *PRESCRIPTION DRUG MONITORING PROGRAM REVIEWED*: No *COPY OF PRESCRIPTION DRUG MONITORING REPORT IN PATIENT MARY: No Home Medications: Home Meds Ibuprofen [Advil] 200 mg PO DAILY PRN 07/14/15 [History] Acetaminophen/Diphenhydramine [Tylenol Pm Ex-Strength Caplet] 1 - 2 tab PO BEDTIME PRN 05/08/16 [History] Gabapentin [Neurontin] 300 mg PO BEDTIME 05/04/18 [History] guaiFENesin [Mucinex] 600 mg PO BID PRN 08/30/18 [History] Furosemide 20 mg PO DAILY 10/19/18 [History] Diphenoxylate HCl/Atropine [Diphenoxylate-Atrop 2.5-0.025] 2 tab PO QID PRN [History] Gabapentin [Neurontin] 100 mg PO 1200 12/13/18 [History] Lysine 500 mg PO DAILY PRN 12/13/18 [History] Ondansetron HCl [Zofran] 4 mg PO Q6H PRN 12/13/18 [History] Potassium Chloride 20 meq PO BID 30 Days #60 12/15/18 [Rx] Forms: ED Department Discharge Referrals: Ketan Ahumada MD [Primary Care Provider] - - Discharge Summary/Plan Comment DC Time >30 min.: No - General Info Date of Service: 01/03/19 Admission Dx/Problem (Free Text: Weakness N/V/D Metastatic colon cancer - Patient Data Vitals - Most Recent: Last Vital Signs Temp 99.7 F 01/03/19 10:50 Pulse 125 H 01/03/19 10:50 Resp 14 01/03/19 10:55 BP 65/54 L 01/03/19 11:42 Pulse Ox Weight - Most Recent: 121 lb 6.4 oz I&O - Last 24 hours: Intake & Output 01/03/19 01/03/19 01/03/19 06:59 14:59 22:59 Intake Total 858 Balance 858 Lab Results - Last 24 hrs: Laboratory Results - last 24 hr 01/03/19 01/03/19 01/03/19 Range/Units 09:13 09:48 09:50 WBC 5.0 (5.0-10.0) 10^3/uL RBC 4.00 (4.00-5.50) 10^6/uL Hgb 12.8 (12.0-16.0) g/dL Hct 39.3 (37.0-47.0) % MCV 98.3 H (82.0-94.0) fL MCH 32.0 (27.0-32.0) pg MCHC 32.6 L (33.0-38.0) g/dL RDW Coeff of Angela 17.8 H (11.0-15.0) % Plt Count 290 (150-400) 10^3/uL Neut % (Auto) 71.8 (35-85) % Lymph % (Auto) 24.6 (10-55) % [place] % (Auto) 3.2 (0-16) % Eos % (Auto) 0 (0-5) % Baso % (Auto) 0.4 (0-3) % Neut # (Auto) 3.55 (1.80-7.00) 10^3/uL Lymph # (Auto) 1.22 (1.00-4.80) 10^3/uL [place] # (Auto) 0.16 (0.00-0.80) 10^3/uL Eos # (Auto) 0.00 (0.00-0.45) 10^3/uL Baso # (Auto) 0.02 10^3/uL ABG pH 7.47 H (7.35-7.45) ABG pCO2 20 L (35-45) mm/Hg0 ABG pO2 104 H (80-100) mm/Hg ABG HCO3 14.9 L (22.0-26.0) mm/L ABG O2 Saturation 99 H (95-98) % ABG Base Excess 9.0 H (-2.0-3.0) O2 Delivery Device Nasal cannula Oxygen Flow Rate 2.0 Sodium 138 (136-145) mEq/L Potassium 3.5 D (3.5-5.0) mEq/L Chloride 101 (98-106) mEq/L Carbon Dioxide 21 (21-32) mmol/L BUN 26 H (7-18) mg/dL Creatinine 1.5 H (0.6-1.0) mg/dL Est Cr Clr Drug Dosing 24.74 mL/min Estimated GFR (MDRD) 33 L (>=60) mL/min Glucose 79 (75-99) mg/dL Calcium 8.7 (8.4-10.1) mg/dL Total Bilirubin 0.5 (0.0-1.0) mg/dL AST 36 (15-37) U/L ALT 21 (12-78) U/L Alkaline Phosphatase 115 (46-116) U/L C-Reactive Protein 1.9 H (0.2-0.8) mg/dL Total Protein 6.1 L (6.4-8.2) g/dL Albumin 2.0 L (3.4-5.0) g/dL Med Orders - Current: Current Medications Acetaminophen (Tylenol) 650 mg PO Q4H PRN PRN Reason: Pain (Mild 1-3)/fever Enoxaparin Sodium (Lovenox) 30 mg SUBCUT Q24H [facility] Last Admin: 01/03/19 11:53 Dose: Not Given Lactated Ringer's (Ringers, Lactated) 1,000 mls @ 25 mls/hr IV ASDIRECTED [facility] Last Infusion: 01/03/19 12:25 Dose: 25 mls/hr Morphine Sulfate (Morphine) 0.5 - 2 mg IVPUSH Q1H PRN PRN Reason: Pain Last Admin: 01/03/19 16:34 Dose: 1 mg Ondansetron HCl (Zofran) 4 mg IV Q4H PRN PRN Reason: Nausea/Vomiting Discontinued Medications Morphine Sulfate (Morphine) 1 - 2 mg IVPUSH Q1H PRN PRN Reason: Pain Morphine Sulfate (Morphine) Confirm Administered Dose 4 mg .ROUTE .STK-MED ONE Stop: 01/03/19 14:34 Last Admin: 01/03/19 14:34 Dose: Not Given Morphine Sulfate (Morphine) Confirm Administered Dose 4 mg .ROUTE .STK-MED ONE Stop: 01/03/19 15:05 Last Admin: 01/03/19 15:12 Dose: Not Given Ondansetron HCl (Zofran) 4 mg IVPUSH ONETIME ONE Stop: 01/03/19 09:59 Last Admin: 01/03/19 10:01 Dose: 4 mg Ondansetron HCl (Zofran Odt) 4 mg PO Q4H PRN PRN Reason: nausea, able to take PO Temazepam (Restoril) 15 mg PO BEDTIME PRN PRN Reason: Sleep
== END 2019-01-03 18:07 | disposition expired ==
LOC: CC.MS 10:28 → UNDOADMOB 10:58 → CC.MS 10:58
PROVIDERS: ADMIT Physician Assistant Medical; ATTEND Family Medicine
DX: R53.1 Weakness (principal); R19.7 Diarrhea, unspecified; R11.2 Nausea with vomiting, unspecified; C18.9 Malignant neoplasm of colon, unspecified; I10 Essential (primary) hypertension; E78.00 Pure hypercholesterolemia, unspecified; Z51.5 Encounter for palliative care; Z79.899 Other long term (current) drug therapy
CPT/HCPCS: 36415; 36600; 80053; 82803; 85025; 86140; 96365; 96375; 99235; 99285-25; J2270; J2405; J7120